=== PATIENT | male | born 1985 | race American Indian/Alaskan Native ===

== ENCOUNTER 2016-12-17 05:30 | Emergency (ER) | payer MEDICAID ==
[2016-12-17 06:10] VITALS: BP 128/88
== END 2016-12-17 06:15 | disposition left against medical advice (07) ==
LOC: ED 05:30
DX: Z23 Encounter for immunization (principal); Z53.21 Procedure and treatment not carried out due to patient leaving prior to being seen by health care provider

== ENCOUNTER 2017-02-18 12:23 | Emergency (ER) | payer MEDICAID | END 2017-02-18 17:16 | disposition left against medical advice (07) | LOC: ED 12:23 | DX: Z53.21 Procedure and treatment not carried out due to patient leaving prior to being seen by health care provider (principal) ==

== ENCOUNTER 2017-04-15 23:53 | Emergency (ER) | payer MEDICAID ==
[2017-04-16 01:19] VITALS: BP 125/90
== END 2017-04-16 07:00 | disposition left against medical advice (07) ==
LOC: ED 23:53
DX: Z53.21 Procedure and treatment not carried out due to patient leaving prior to being seen by health care provider (principal)

== ENCOUNTER 2017-05-03 03:11 | Emergency (ER) | payer MEDICAID ==
[2017-05-03] MEDS ORDERED: TYLENOL PO ONE (03:41)
[2017-05-03] MEDS ORDERED: TYLENOL ONE (03:42)
--- NOTE | 2017-05-03 04:23 | XRay Report ---
FINAL REPORT EXAM: XR CHEST ROUTINE 2V HISTORY: Shortness of breath TECHNIQUE: PA and lateral views of the chest were submitted. FINDINGS: The lungs are clear. Heart the heart size is normal. Pleural fluid is not seen. The bones and soft tissues appear well maintained. IMPRESSION: No active chest disease.
[2017-05-03 04:32] LABS: Basophils % (Auto) 0.7 % (0.0-1.8); Eosinophils % (Auto) 0.1 % (0.0-4.3); Hematocrit 44.5 % (35.5-45.6); Hemoglobin 15.1 gm/dl (11.8-15.2); Mean Corpuscular HGB Conc 34 % (32-34); Mean Corpuscular Hemoglobin 31 pg (28-32); Mean Corpuscular Volume 91 fl (84-94); Platelet Count 217 K/mm3 (140-440); Red Blood Count 4.89 M/mm3 (3.65-5.03); Red Cell Distribution Width 13.6 % (13.2-15.2); White Blood Count 9.1 K/mm3 (4.5-11.0)
[2017-05-03 04:49] LABS: Anion Gap 23 mmol/L; BUN/Creatinine Ratio 9; Blood Urea Nitrogen 9 mg/dL (9-20); Calcium 9.6 mg/dL (8.4-10.2); Carbon Dioxide 24 mmol/L (22-30); Chloride 97.6 mmol/L (98-107); Glucose 86 mg/dL (75-100); Potassium 4.3 mmol/L (3.6-5.0); Sodium 140 mmol/L (137-145)
[2017-05-03 05:10] LABS: Urine Drugs of Abuse Note Disclamer
[2017-05-03] MEDS ORDERED: TORADOL IM ONE (05:15)
[2017-05-03 05:18] LABS: Bilirubin,Urine Negative (Negative); Blood,Urine Negative (Negative); Ketones,Urine Negative (Negative); Urobilinogen,Urine < 2.0 mg/dL (<2.0)
[2017-05-03 05:19] LABS: Leukocyte Esterase,Urine Negative (Negative); Nitrite,Urine Negative (Negative)
[2017-05-03 05:28] LABS: Bacteria,Urine 1+ /HPF (Negative); RBC,Urine < 1.0 /HPF (0.0-6.0)
--- NOTE | 2017-05-03 06:07 | Emergency Department Report ---
HPI - General Chief Complaint: Upper Respiratory Infection Time Seen by Provider: 05/03/17 05:15 - HPI HPI: The patient is a 31-year-old male presents for evaluation of chest pain. The patient reports chest pain for the past one week, 5/10 in severity, aching in quality, exacerbated with coughing, improved at rest. He says that his PSA number productive cough of same duration time. The patient has fever, trauma to the chest or back, dyspnea, syncope, hemoptysis, unilateral leg swelling, recent immobilization, history of DVT or PE, recent cancer, history of familial coagulation disorder. ED Past Medical Hx - Past Medical History Previous Medical History?: Yes Hx Psychiatric Treatment: Yes (bipolar disorder,depression, SI, HI) Additional medical history: Bipolar, - Surgical History Past Surgical History?: No - Social History Smoking Status: Light Tobacco Smoker Substance Use Type: Alcohol, Cocaine, Marijuana - Medications Home Medications: Home Medications Medication Instructions Recorded Confirmed Last Taken Type Paliperidone Palmitate (Nf) 156 mg IM QMONTH 01/11/16 01/11/16 12/12/15 History [Invega Sustenna (Nf)] Paliperidone [Invega] 6 mg PO QDAY #30 tab.er.24 01/11/16 Unknown Rx Amoxicillin/K Clav Tab [Augmentin 1 tab PO Q12HR #20 tab 05/21/16 Unknown Rx 875 mg] traMADol [Ultram 50 MG tab] 50 mg PO Q6HR PRN #15 tablet 05/03/17 Unknown Rx ED Review of Systems ROS: Stated complaint: CP Other details as noted in HPI Constitutional: denies: fever ENT: denies: throat or neck pain Respiratory: denies: cough, shortness of breath Cardiovascular: reports chest pain Endocrine: denies unexplained weight loss or gain Gastrointestinal: denies: abdominal pain, nausea Genitourinary: denies: dysuria Musculoskeletal: denies: leg swelling Skin: denies: rash Neurological: denies: headache Hematological/Lymphatic: denies: easy bleeding or easy bruising Psych: denies sadness or hopelessness Physical Exam - Physical Exam Vital Signs: Vital Signs 05/03/17 05/03/17 05/03/17 03:17 04:22 05:00 Temperature 97.4 F L 98.1 F Pulse Rate 103 H 85 79 Respiratory 18 12 16 Rate Blood Pressure 104/73 Blood Pressure 137/98 119/87 [Right] O2 Sat by Pulse 100 99 97 Oximetry Physical Exam: General: well-nourished, well-developed, no acute distress Head: Normocephalic, atraumatic Eyes: normal sclera ENT: Mucous membranes are pink and moist Neck: trachea midline, neck supple, No neck stiffness, no cervical adenopathy Respiratory: Breath sounds equal bilaterally, no wheezing, rales, or rhonchi Cardio: S1 and S2 present, no murmurs, rubs, gallops, capillary refill is brisk Abdomen: Normoactive bowel sounds, soft abdomen, no rigidity, no guarding or rebound tenderness Chest WALL/Back: No tenderness to palpation of the chest wall, no CVA tenderness with percussion Musc: No pitting edema Skin: No rash Neuro: no facial drooping, normal speech Psych: Normal affect ED Course Vital Signs 05/03/17 05/03/17 05/03/17 03:17 04:22 05:00 Temperature 97.4 F L 98.1 F Pulse Rate 103 H 85 79 Respiratory 18 12 16 Rate Blood Pressure 104/73 Blood Pressure 137/98 119/87 [Right] O2 Sat by Pulse 100 99 97 Oximetry ED Medical Decision Making - Lab Data Result diagrams: 05/03/17 04:16 05/03/17 04:16 - Medical Decision Making The patient was seen and examined by myself. The patient is placed on a environmental monitoring technician and continuous pulse ox. On initial evaluation, the patient was found to be in no distress. EKG was negative for findings suggestive of acute cardiac infarct. Labs and imaging are obtained. The patient is given an IM dose of Toradol for his pain. Chest x-ray is negative for pneumothorax, focal consolidation, pulmonary vascular congestion, pleural effusion, or other obvious acute cardiopulmonary disease process. Lab results were non-concerning including levels of troponin, WBC, hemoglobin, hematocrit, electrolytes, renal function. The patient was reevaluated and reported that their symptoms were markedly improved. As the patient has a ELHAM risk score less than 2, and a well's score less than 2, the patient is at low risk of ACS or pulmonary emboli etiology of their symptoms. The patient is stable for discharge with outpatient follow-up. The patient is given follow-up and return instructions. The patient expressed understanding and agreed with the plan. The patient is discharged in stable condition. Critical care attestation.: If time is entered above; I have spent that time in minutes in the direct care of this critically ill patient, excluding procedure time. ED Disposition Clinical Impression: Acute chest pain Disposition: DC-01 TO HOME OR SELFCARE Is pt being admited?: No Does the pt Need Aspirin: No Condition: Stable Instructions: Chest Pain (ED), Costochondritis (ED) Referrals: PRIMARY CARE, [Primary Care Provider] - 3-5 Days Time of Disposition: 06:04 (\)
[2017-05-03 06:29] VITALS: BP 104/69
== END 2017-05-03 06:35 | disposition home or self-care (01) ==
LOC: ED 03:11
DX: R07.9 Chest pain, unspecified (principal); F31.9 Bipolar disorder, unspecified; F17.200 Nicotine dependence, unspecified, uncomplicated; F12.10 Cannabis abuse, uncomplicated; F14.10 Cocaine abuse, uncomplicated
CPT/HCPCS: 36415; 71020; 80048; 80307; 81001; 83880; 84484; 85025; 93005; 93010; 96372; 99284; J1885

== ENCOUNTER 2017-06-02 17:34 | Emergency (ER) | payer MEDICAID ==
[2017-06-02 17:39] VITALS: BP 129/74
== END 2017-06-02 19:32 | disposition left against medical advice (07) ==
LOC: ED 17:34
DX: R22.0 Localized swelling, mass and lump, head (principal); Z53.21 Procedure and treatment not carried out due to patient leaving prior to being seen by health care provider

== ENCOUNTER 2017-07-24 21:25 | Emergency (ER) | payer MEDICAID | END 2017-07-24 21:40 | disposition left against medical advice (07) | LOC: ED 21:25 | DX: R07.9 Chest pain, unspecified (principal); Z53.21 Procedure and treatment not carried out due to patient leaving prior to being seen by health care provider ==